=== PATIENT | female | born 1980 | race Caucasian/White ===

== ENCOUNTER 2020-12-09 13:39 | Outpatient (CLI) | payer BC, SELFPAY ==
--- NOTE | ~2020-12-09 | US_ITS ---
EXAMINATION: US thyroid EXAM DATE: 12/09/2020 14:37 INDICATION: E06.9 - Thyroiditis, unspecified. TECHNIQUE: Multiple grayscale and Doppler images of the thyroid were obtained (by a technologist who performed the scan) and subsequently reviewed. Individual nodules and recommendations may be reporte d in accordance with TI-RADS system as designated by the 2017 ACR White Paper TI-RADS committee. The re is no prior study for comparison. FINDINGS: Right thyroid lobe measures 2.5 x 0.7 x 0.8 cm, the left measuring 2.5 x 0.4 x 0.7 cm. There are 2 an echoic cystic regions, one in each lobe larger on the right measuring up to 1.0 cm. These are benign. IMPRESSION: Normal thyroid size. Benign thyroid cysts. Reviewed, dictated and finalized at location B.
== END 2020-12-09 13:40 | disposition home or self-care (01) ==
PROVIDERS: PCP Family Medicine; Visit Provider Family Medicine
DX: E06.9 Thyroiditis, unspecified (principal); E04.1 Nontoxic single thyroid nodule
CPT/HCPCS: 76536

== ENCOUNTER 2023-11-22 15:26 | Outpatient (CLI) | payer BC, SELFPAY ==
--- NOTE | ~2023-11-22 | MR_ITS ---
MRA HEAD History: Headache Technique: 3D time of flight MRA of the head is performed. Findings: The right and left distal vertebral arteries and the basilar and posterior cerebral arterie s are normal. Right and left distal internal carotid arteries and anterior and middle cerebral arteri es are normal. There is no aneurysm, stenosis, or occlusion. Impression: No occlusion, stenosis, or aneurysm. Reviewed, dictated and finalized at location . Impression: No occlusion, stenosis, or aneurysm.
== END 2023-11-22 15:27 ==
PROVIDERS: PCP Physician Assistant; Visit Provider Physician Assistant
DX: R51.9 Headache, unspecified (principal); R42 Dizziness and giddiness
CPT/HCPCS: 70544